=== PATIENT | male | born 1945 | race Caucasian/White ===

== ENCOUNTER 2022-02-18 13:28 | Emergency (ER) | payer OTHER ==
[~2022-02-18] VITALS: Ht 167.6 cm; Wt 61.7 kg
--- NOTE | 2022-02-18 13:42 | NUR ---
[id number] alejo home, sob 84% on 4lpm via NC, 90% on NRB, BG 162. On simple mask @ 6lpm 02 sat 96. Denies any pain at this time. Kept comfortable, will continue to monitor accordingly.
[2022-02-18 14:38] LABS: CARBON DIOXIDE 35 mmol/L (21-32); CHLORIDE 97 mmol/L (98-107); CREATININE 0.8 mg/dL (0.6-1.3); GLUCOSE 94 mg/dL (74-106); POTASSIUM 3.1 mmol/L (3.5-5.1); SODIUM SERUM 136 mmol/L (136-145); UREA NITROGEN, BLOOD 20 mg/dL (7-18)
[2022-02-18 14:41] LABS: BASOPHILS % (AUTO) 0.5 % (0.0-2.0); HEMATOCRIT 26 % (39-51); HEMOGLOBIN 9.1 g/dL (13.5-17.5); LYMPHOCYTES # (AUTO) 0.8 K/uL (0.8-4.8); LYMPHOCYTES % (AUTO) 11.2 % (20.0-44.0); MEAN CORPUSCULAR HGB CONC 35 g/dl (31.0-36.0); MEAN CORPUSCULAR VOLUME 93 fL (80-96); MONOCYTES # (AUTO) 0.6 K/uL (0.1-1.30); MONOCYTES % (AUTO) 8.7 % (2.0-12.0); NEUTROPHILS # (AUTO) 5.7 K/uL (1.8-8.9); NEUTROPHILS % (AUTO) 78.6 % (43.0-81.0); PLATELET COUNT (AUTO) 238 K/uL (150-450); RED BLOOD CELL COUNT(AUTO) 2.82 MIL/uL (4.5-6.0); WHITE BLOOD COUNT (AUTO) 7.2 K/uL (4.3-11.0)
[2022-02-18 14:53] LABS: ALANINE AMINOTRANSFERASE 15 U/L (12-78); ALBUMIN 1.7 g/dL (3.4-5.0); ALKALINE PHOSPHATASE 307 U/L (46-116); ASPARTATE AMINOTRANSFERASE 22 U/L (15-37); BILIRUBIN,DIRECT 0.2 mg/dL (0.0-0.2); BILIRUBIN,TOTAL 0.4 mg/dL (0.2-1.0)
[2022-02-18] MEDS ORDERED: CT SWABBABLE VALVE TRANS SET 1 EA INFUS.SET MC ONE ×2 (15:23→17:08)
[2022-02-18] MEDS ORDERED: IOHEXOL-350 100 ML VIAL IV ONE ×2 (15:23→17:08)
[2022-02-18] MEDS ORDERED: IV NS 0.9% 250 ML IV ONE ×2 (15:23→17:08)
[2022-02-18 15:24] LABS: BILIRUBIN,URINE NEGATIVE (NEGATIVE); COLOR,URINE YELLOW (YELLOW); LEUKOCYTE ESTERASE ,URINE NEGATIVE (NEGATIVE); NITRITE, URINE NEGATIVE (NEGATIVE); PROTEIN,URINE NEGATIVE (NEGATIVE); UGLUCOSE NEGATIVE (NEGATIVE); UROBILINOGEN,URINE 0.2 EU/dL (0.2)
[2022-02-18] MEDS ORDERED: IV NS 0.9% 500 ML IV ONE (15:30)
[2022-02-18] MEDS ORDERED: VANCOMYCIN 1 GM in IV D5W 250 ML IV ONE (15:30)
--- NOTE | 2022-02-18 15:38 | NUR ---
CALLED [facility] [place] FOR PEER TO PEER SETUP. WILL CALL BACK.
--- NOTE | 2022-02-18 15:52 | NUR ---
MICHELL CALLED FOR PEER TO PEER. CURRENTLY SPEAKING WITH DR. FINNEY.
[2022-02-18] MEDS ORDERED: PIPERACILLIN /TAZOBACTAM 3.375 G in IV D5W 50 ML IV ONE (16:00)
[2022-02-18] MEDS ORDERED: POTASSIUM CHLORIDE 20 MEQ TAB.PRT.SR PO ONE (16:00)
[2022-02-18] MEDS ORDERED: LIPA1CAP8 PO (16:22)
[2022-02-18] MEDS ORDERED: IBUP-2715 PO (16:22)
[2022-02-18] MEDS ORDERED: FURO40TA5 PO (16:22)
[2022-02-18] MEDS ORDERED: OMEP40CA21 PO (16:22)
[2022-02-18] MEDS ORDERED: ATOR20TA PO (16:22)
[2022-02-18] MEDS ORDERED: SERT100T12 PO (16:22)
[2022-02-18] MEDS ORDERED: MULT-188 PO (16:22)
[2022-02-18] MEDS ORDERED: BUDE10.22 INH (16:22)
[2022-02-18] MEDS ORDERED: POTA10TA PO (16:22)
[2022-02-18] MEDS ORDERED: MORP15TA PO (16:22)
[2022-02-18] MEDS ORDERED: PROP20TA19 PO (16:22)
[2022-02-18] MEDS ORDERED: MORPHINE SULFATE INJ 4 MG/ML DISP.SYRIN ONE (16:57)
[2022-02-18] MEDS ORDERED: MORPHINE SULFATE INJ 2 MG/ML DISP.SYRIN IV ONE (17:00)
--- NOTE | 2022-02-18 17:40 | NUR ---
CALLED [facility]SING [facility] FOR PICC LINE NURSE. ETA 1 HOUR.
--- NOTE | 2022-02-18 19:33 | NUR ---
MIDLINE NURSE AT BEDSIDE
--- NOTE | 2022-02-18 19:52 | NUR ---
[facility] [phone]
--- NOTE | 2022-02-18 20:42 | NUR ---
MICHELL EPRP PAGED PER DR FINNEY.
[2022-02-18 23:01] VITALS: BP 99/57
--- NOTE | 2022-02-18 23:30 | NUR ---
PT ACCEPTED TO [facility] BY DR VARGAS AND DR TORREZ. # FOR REPORT [phone]. ALS ETA 0010
--- NOTE | 2022-02-18 23:59 | NUR ---
PT PICKED UP BY [facility] FOR TRANSFER TO [facility]. TRANSFER FORM COMPLETED AND IN PT CHART. 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 ALL V/S STABLE AT TIME OF TRANSFER.
== END 2022-02-19 00:03 | disposition short-term general hospital (02) ==
LOC: ER 13:30
DX: J96.21 Acute and chronic respiratory failure with hypoxia (principal); J18.9 Pneumonia, unspecified organism; Z20.822 Contact with and (suspected) exposure to COVID-19; C25.9 Malignant neoplasm of pancreas, unspecified; Z79.899 Other long term (current) drug therapy; E87.6 Hypokalemia; N28.9 Disorder of kidney and ureter, unspecified
CPT/HCPCS: 36410; 36415; 71045; 71275; 76937; 80048; 80076; 81003; 83605; 83880; 84145; 84484 ×2; 85025; 85730; 87040 ×2; 87081; 87086; 87426; 87804; 93005; 96365; 96367; 96375; 99291; C9803; J2270; J2543; J3370; J7040; J7050 ×2; J7060; Q9967 ×2